=== PATIENT | female | born 1950 | race Caucasian/White ===

== ENCOUNTER 2022-11-06 08:40 | Emergency (ER) | payer MEDICARE, SELFPAY ==
[2022-11-06] VITALS (9 sets, daily range): BP systolic 138–157; BP diastolic 69–85; PULSE 70–97; RESP 18; TEMP 36.6; O2SAT 92–98
--- NOTE | 2022-11-06 09:09 | XR_ITS ---
WS: [id number] Exam: XR chest 1V portable [id number] Date/Time of Exam: 11/06/2022 9:28 AM Reason For Exam: dyspnea/cough No priors. The lungs are clear and fully inflated. Normal cardiomediastinal silhouette. No pleural effusions. Le voscoliosis of the upper T-spine. Remaining bony structures are unremarkable. XR/XR chest 1V portable [id number] IMPRESSION: 1. No acute cardiopulmonary process.
--- NOTE | 2022-11-06 09:09 | ECG_ITS ---
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 Measurements Intervals [place] Rate: 75 P: 31 CO: 140 QRS: 34 QRSD: 90 T: 48 QT: 363 QTc: 407 Interpretive Statements SINUS RHYTHM No previous ECG available for comparison Electronically Signed On 11-06-2022 14:29:09 CDT by Cesar Puente M.D. [id number]
--- NOTE | 2022-11-06 09:09 | W.ED.SOB ---
Documented by User: Contreras Worley DO 11/08/22 08:01 HPI - SOB/Dyspnea General: Chief Complaint: Shortness of Breath/Dyspnea Stated Complaint: sob/congestion/nauseas Time Seen by Provider: 11/06/22 09:04 Source: patient Mode of arrival: ambulatory History of Present Illness: HPI Narrative: 72-year-old female presents [place] to the emergency room with productive cough progressively worsening accompanied by diarrhea and chills. Has a moderate yellow sputum. She did take a home COVID test that was negative. She is also been working outside exposed to a lot of dust and pollen. MD elicited complaint: shortness of breath and cough Onset (ago): day(s) (4) Timing: constant Exacerbating factors: nothing Relieving factors: nothing Associated symptoms: Reports fever(s); Deny abdominal pain, chest congestion, chest pain, cough, diaphoresis, dizziness, extremity pain, hemoptysis, lightheadedness, myalgias, nausea, orthopnea, palpitations, paresthesias, polydipsia, polyuria, rash, sense of impending doom, syncope or vomiting Treatment prior to arrival: none Review of Systems Const: Reports: fever(s), chills, fatigue and malaise; Denies: diaphoresis ENMT: Denies: throat pain, ear or mastoid pain, nasal discharge or nasal congestion Card: Denies: chest pain, palpitations, lightheadedness, syncope or orthopnea Resp: Reports: dyspnea and productive cough; Denies: hemoptysis or chest congestion GI: Reports: diarrhea; Denies: abdominal pain, nausea or vomiting : Denies: flank pain, difficulty voiding, dysuria, urinary frequency or urinary urgency Musc: Denies: neck pain, back pain or extremity pain Skin/Breast: Denies: rash or pruritus Neuro: Denies: dizziness Endo: Denies: polyuria or polydipsia Physical Exam Const: GENERAL APPEARANCE: cooperative and comfortable ORIENTATION/CONSCIOUSNESS: Yes awake, Yes oriented to person, Yes oriented to place and Yes oriented to time HENMT: COMMON NORMALS: normocephalic, atraumatic and hearing grossly normal bilaterally HEAD & SCALP: normocephalic and atraumatic Resp: COMMON NORMALS: normal respiratory effort, No retractions, No use of accessory muscles and clear to auscultation bilaterally AUSCULTATION: clear to auscultation bilaterally Cardio: COMMON NORMALS: regular rate, regular rhythm and No murmurs present (Cardio) RATE: regular rate RHYTHM: regular rhythm GI: COMMON NORMALS: Soft to palpation and No hepatosplenomegaly present AUSCULTATION: Yes normoactive bowel sounds PALPATION: Yes Soft to palpation, No Tenderness to palpation present (GI), No Guarding due to palpation present (GI) and Yes No hepatosplenomegaly present Extremity: COMMON NORMALS: normal to inspection, capillary refill normal, no clubbing, cyanosis or edema, no calf tenderness and no pedal edema Neuro: SENSORIUM/ORIENTATION: Yes oriented to person, Yes oriented to place and Yes oriented to time Skin: COMMON NORMALS: no rashes or lesions noted GENERAL SKIN EXAM: no rashes or lesions noted Course Vital Signs: Vital signs: Vital Signs Temperature 97.8 F 11/06/22 08:50 Pulse Rate 97 11/06/22 13:41 Respiratory Rate 18 11/06/22 08:50 Blood Pressure 157/76 11/06/22 13:41 Pulse Oximetry 96 11/06/22 13:41 Oxygen Delivery Me thod Room Air 11/06/22 13:41 MDM - SOB/Dyspnea Medical Decision Making Care signed out to Dr. Fried at change of shift. See final notes for diagnosis and disposition. 72-year-old female checked out to me by the previous physician at shift change. This young lady had experiencing chest tightness and shortness of breath. Her CBC is normal. Her vitals are good. Her x-ray shows no infiltrate or other process. EKG was not remarkable. Troponin stayed normal at 2 hours. COVID-19 is negative. This may be an irritant versus viral or bacterial bronchitis. She will be covered, given a decreasing dose of steroid, inhaler. She is agreeable to this. First dose is given here. Close outpatient follow-up. Lab Data 11/06/22 09:33 11/06/22 09:33 Labs/Radiology: Radiology Impressions Chest X-Ray 11/06/22 09:09 IMPRESSION: 1. No acute cardiopulmonary process. Laboratory Results WBC 5.6 10^3/uL (4.0-10.0) 11/06/22 09:33 RBC 4.86 10^6/uL (4.1-5.3) 11/06/22 09:33 Hgb 14.1 g/dL (11.5-15.3) 11/06/22 09:33 Hct 43.2 % (37.0-47.0) 11/06/22 09:33 MCV 88.9 fl (81-99) 11/06/22 09:33 MCH 29.0 pg (28.0-34.0) 11/06/22 09:33 MCHC 32.6 g/dL (30.0-36.0) 11/06/22 09:33 RDW 13.6 % (12.1-15.1) 11/06/22 09:33 Plt Count 207 10^3/cmm (130-400) 11/06/22 09:33 MPV 10.2 fL (7.4-10.4) 11/06/22 09:33 Neut % (Auto) 78.0 % 11/06/22 09:33 Lymph % (Auto) 14.6 % 11/06/22 09:33 [place] % (Auto) 6.4 % 11/06/22 09:33 Eos % (Auto) 0.2 % 11/06/22 09:33 Baso % (Auto) 0.4 % 11/06/22 09:33 Neut # (Auto) 4.38 10^3/uL (1.8-7.7) 11/06/22 09:33 Lymph # (Auto) 0.8 10^3/uL (0.8-4.8) 11/06/22 09:33 [place] # (Auto) 0.4 10^3/uL (0.2-0.9) 11/06/22 09:33 Eos # (Auto) 0.0 10^3/uL (0.0-0.8) 11/06/22 09:33 Baso # (Auto) 0.0 10^3/uL (0.0-0.1) 11/06/22 09:33 Nucleated RBC % (auto) 0 % 11/06/22 09:33 Nucleated RBCs # 0.0 /100WBC 11/06/22 09:33 Sodium 133 mmol/L (136-145) L 11/06/22 09:33 Potassium 3.6 mmol/L (3.5-5.1) 11/06/22 09:33 Chloride 97 mmol/L (98-107) L 11/06/22 09:33 Carbon Dioxide 24 mmol/L (22-29) 11/06/22 09:33 Anion Gap 15.6 (5-19) 11/06/22 09:33 BUN 9 mg/dL (8-23) 11/06/22 09:33 Creatinine 0.6 mg/dL (0.5-0.9) 11/06/22 09:33 GFR Calculation Not Reportable 11/06/22 09:33 Glucose 125 mg/dL (65-115) H 11/06/22 09:33 Calculated Osmolality 276 mOsm/kg (285-295) L 11/06/22 09:33 Calcium 8.8 mg/dL (8.5-10.5) 11/06/22 09:33 Total Bilirubin 0.2 mg/dL (0.15-1.2) 11/06/22 09:33 AST 24 U/L (0-32) 11/06/22 09:33 ALT 31 U/L (0-33) 11/06/22 09:33 Alkaline Phosphatase 95 U/L (35-105) 11/06/22 09:33 Troponin T Baseline 6 ng/L (0-10) 11/06/22 09:33 Troponin T 120 Minute 6.00 ng/L (0-10) 11/06/22 11:35 Delta Troponin T 0 ABS# (0-10) 11/06/22 11:35 Total Protein 7.1 g/dL (6.6-8.7) 11/06/22 09:33 Albumin 4.3 g/dL (3.5-5.2) 11/06/22 09:33 Globulin 2.8 g/dL (1.3-4.6) 11/06/22 09:33 Coronavirus 229E (PCR) Not detected (NOT DETECT) 11/06/22 09:33 Human Metapneumovir PCR Detected (NOT DETECT) A 11/06/22 11:29 Entero/Rhino (PCR) Not detected (NOT DETECT) 11/06/22 11:29 SARS-CoV-2 (PCR) Not detected (NOT DETECT) 11/06/22 09:33 Discharge Plan Discharge Patient Disposition: Home Clinical Impression: Acute bronchitis Condition: Stable Prescriptions: New azithromycin 250 mg tablet See Rx Instructions .ROUTE .COMPLEX Qty: 6 0RF Rx Instructions: For 250 mg dose pack: take 500 mg today (day 1), then 250 mg for 4 days (days 2-5) Medrol (Rojas) 4 mg tablets,dose pack See Rx Instructions PO .COMPLEX Qty: 21 0RF Rx Instructions: orally per package directions albuterol sulfate 90 mcg/actuation HFA aerosol inhaler 2 inh inhalation Q4H PRN (Reason: shortness of breath or wheezing) Qty: 6.7 1RF Discharge Orders: Discharge ED (Routine); Ordered 11/06/22 Ordered By: Rick Fried Patient Instructions: Acute Bronchitis (ED) Activity Restrictions/Additional Instructions: Use the inhaler every 4 hours while awake for the next 48 hours, then as needed. Other medications as directed. Return to the emergency department for worsening pain to your chest, worsening shortness of breath despite treatment, fever greater than 100 despite 2-3 doses of antibiotics, other concerning symptoms. Follow-up with your doctor this week. Coding Level of Care Code ED Ecommerce Manager for Chg Fwd Documented by User: Rick Fried DO 11/06/22 22:31 HPI - SOB/Dyspnea General: Chief Complaint: Shortness of Breath/Dyspnea Stated Complaint: sob/congestion/nauseas Time Seen by Provider: 11/06/22 09:04 History of Present Illness: HPI Narrative: 72-year-old female presents to the emergency room with productive cough progressively worsening accompanied by diarrhea and chills. Has a moderate yellow sputum. She did take a home COVID test that was negative. She is also been working outside exposed to a lot of dust and pollen. Course Vital Signs: Vital signs: Vital Signs Temperature 97.8 F 11/06/22 08:50 Pulse Rate 97 11/06/22 13:41 Respiratory Rate 18 11/06/22 08:50 Blood Pressure 157/76 11/06/22 13:41 Pulse Oximetry 96 11/06/22 13:41 Oxygen Delivery Me thod Room Air 11/06/22 13:41 MDM - SOB/Dyspnea Medical Decision Making 72-year-old female checked out to me by the previous physician at shift change. This young lady had experiencing chest tightness and shortness of breath. Her CBC is normal. Her vitals are good. Her x-ray shows no infiltrate or other process. EKG was not remarkable. Troponin stayed normal at 2 hours. COVID-19 is negative. This may be an irritant versus viral or bacterial bronchitis. She will be covered, given a decreasing dose of steroid, inhaler. She is agreeable to this. First dose is given here. Close outpatient follow-up. Lab Data 11/06/22 09:33 11/06/22 09:33 Labs/Radiology: Radiology Impressions Chest X-Ray 11/06/22 09:09 IMPRESSION: 1. No acute cardiopulmonary process. Laboratory Results WBC 5.6 10^3/uL (4.0-10.0) 11/06/22 09:33 RBC 4.86 10^6/uL (4.1-5.3) 11/06/22 09:33 Hgb 14.1 g/dL (11.5-15.3) 11/06/22 09:33 Hct 43.2 % (37.0-47.0) 11/06/22 09:33 MCV 88.9 fl (81-99) 11/06/22 09:33 MCH 29.0 pg (28.0-34.0) 11/06/22 09:33 MCHC 32.6 g/dL (30.0-36.0) 11/06/22 09:33 RDW 13.6 % (12.1-15.1) 11/06/22 09:33 Plt Count 207 10^3/cmm (130-400) 11/06/22 09:33 MPV 10.2 fL (7.4-10.4) 11/06/22 09:33 Neut % (Auto) 78.0 % 11/06/22 09:33 Lymph % (Auto) 14.6 % 11/06/22 09:33 [place] % (Auto) 6.4 % 11/06/22 09:33 Eos % (Auto) 0.2 % 11/06/22 09:33 Baso % (Auto) 0.4 % 11/06/22 09:33 Neut # (Auto) 4.38 10^3/uL (1.8-7.7) 11/06/22 09:33 Lymph # (Auto) 0.8 10^3/uL (0.8-4.8) 11/06/22 09:33 [place] # (Auto) 0.4 10^3/uL (0.2-0.9) 11/06/22 09:33 Eos # (Auto) 0.0 10^3/uL (0.0-0.8) 11/06/22 09:33 Baso # (Auto) 0.0 10^3/uL (0.0-0.1) 11/06/22 09:33 Nucleated RBC % (auto) 0 % 11/06/22 09:33 Nucleated RBCs # 0.0 /100WBC 11/06/22 09:33 Sodium 133 mmol/L (136-145) L 11/06/22 09:33 Potassium 3.6 mmol/L (3.5-5.1) 11/06/22 09:33 Chloride 97 mmol/L (98-107) L 11/06/22 09:33 Carbon Dioxide 24 mmol/L (22-29) 11/06/22 09:33 Anion Gap 15.6 (5-19) 11/06/22 09:33 BUN 9 mg/dL (8-23) 11/06/22 09:33 Creatinine 0.6 mg/dL (0.5-0.9) 11/06/22 09:33 GFR Calculation Not Reportable 11/06/22 09:33 Glucose 125 mg/dL (65-115) H 11/06/22 09:33 Calculated Osmolality 276 mOsm/kg (285-295) L 11/06/22 09:33 Calcium 8.8 mg/dL (8.5-10.5) 11/06/22 09:33 Total Bilirubin 0.2 mg/dL (0.15-1.2) 11/06/22 09:33 AST 24 U/L (0-32) 11/06/22 09:33 ALT 31 U/L (0-33) 11/06/22 09:33 Alkaline Phosphatase 95 U/L (35-105) 11/06/22 09:33 Troponin T Baseline 6 ng/L (0-10) 11/06/22 09:33 Troponin T 120 Minute 6.00 ng/L (0-10) 11/06/22 11:35 Delta Troponin T 0 ABS# (0-10) 11/06/22 11:35 Total Protein 7.1 g/dL (6.6-8.7) 11/06/22 09:33 Albumin 4.3 g/dL (3.5-5.2) 11/06/22 09:33 Globulin 2.8 g/dL (1.3-4.6) 11/06/22 09:33 Coronavirus 229E (PCR) Not detected (NOT DETECT) 11/06/22 09:33 Human Metapneumovir PCR Detected (NOT DETECT) A 11/06/22 11:29 Entero/Rhino (PCR) Not detected (NOT DETECT) 11/06/22 11:29 SARS-CoV-2 (PCR) Not detected (NOT DETECT) 11/06/22 09:33 Discharge Plan Discharge Patient Disposition: Home Clinical Impression: Acute bronchitis Condition: Stable Prescriptions: New azithromycin 250 mg tablet See Rx Instructions .ROUTE .COMPLEX Qty: 6 0RF Rx Instructions: For 250 mg dose pack: take 500 mg today (day 1), then 250 mg for 4 days (days 2-5) Medrol (Rojas) 4 mg tablets,dose pack See Rx Instructions PO .COMPLEX Qty: 21 0RF Rx Instructions: orally per package directions albuterol sulfate 90 mcg/actuation HFA aerosol inhaler 2 inh inhalation Q4H PRN (Reason: shortness of breath or wheezing) Qty: 6.7 1RF Discharge Orders: Discharge ED (Routine); Ordered 11/06/22 Ordered By: Rick Fried Patient Instructions: Acute Bronchitis (ED) Activity Restrictions/Additional Instructions: Use the inhaler every 4 hours while awake for the next 48 hours, then as needed. Other medications as directed. Return to the emergency department for worsening pain to your chest, worsening shortness of breath despite treatment, fever greater than 100 despite 2-3 doses of antibiotics, other concerning symptoms. Follow-up with your doctor this week. Coding Level of Care Code ED Ecommerce Manager for Sahil Aguilar
[2022-11-06 09:44] LABS: Basophils % 0.4 %; Eosinophils % 0.2 %; Hematocrit 43.2 % (37.0-47.0); Hemoglobin 14.1 g/dL (11.5-15.3); Lymphocytes # 0.8 10^3/uL (0.8-4.8); Lymphocytes % 14.6 %; Mean Corpuscular HGB Conc 32.6 g/dL (30.0-36.0); Mean Corpuscular Volume 88.9 fl (81-99); Mean Platelet Volume 10.2 fL (7.4-10.4); Monocytes # 0.4 10^3/uL (0.2-0.9); Monocytes % 6.4 %; Neutrophils # 4.38 10^3/uL (1.8-7.7); Nucleated Red Blood Cells % 0 %; Platelet Count 207 10^3/cmm (130-400); Red Blood Count 4.86 10^6/uL (4.1-5.3); Red Cell Distribution Width 13.6 % (12.1-15.1); White Blood Count 5.6 10^3/uL (4.0-10.0)
[2022-11-06 10:01] LABS: Alanine Aminotransferase 31 U/L (0-33); Albumin Level 4.3 g/dL (3.5-5.2); Alkaline Phosphatase 95 U/L (35-105); Anion Gap 15.6 (5-19); Aspartate Amino Transferase 24 U/L (0-32); Blood Urea Nitrogen 9 mg/dL (8-23); Calcium 8.8 mg/dL (8.5-10.5); Carbon Dioxide 24 mmol/L (22-29); Chloride 97 mmol/L (98-107); Globulin 2.8 g/dL (1.3-4.6); Glucose 125 mg/dL (65-115); Osmolality Calculated 276 mOsm/kg (285-295); Potassium 3.6 mmol/L (3.5-5.1); Sodium 133 mmol/L (136-145); Total Bilirubin 0.2 mg/dL (0.15-1.2); Total Protein 7.1 g/dL (6.6-8.7)
[2022-11-06 10:04] LABS: Troponin(5th) Baseline 6 ng/L (0-10)
--- NOTE | 2022-11-06 11:22 | ECG_ITS ---
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 Measurements Intervals [place] Rate: 71 P: 33 NV: 136 QRS: 36 QRSD: 89 T: 52 QT: 383 QTc: 419 Interpretive Statements SINUS RHYTHM Compared to ECG 11/06/2022 09:30:11 No significant changes Electronically Signed On 11-06-2022 14:33:59 CDT by Cesar Puente M.D. [email or web address] [email or web address] health behavioral medical [id number]
[2022-11-06 11:27] LABS: Adenovirus Not Detected (NOT DETECT); Chlamydia Pneumoniae Not Detected (NOT DETECT); Coronavirus 229E,HKU1,NL63,OC4 Not Detected (NOT DETECT); Human Metapneumovirus Detected (NOT DETECT); Human Rhinovirus/Enterovirus Not Detected (NOT DETECT); Influenza A Not Detected (NOT DETECT); Influenza A H1 Not Detected (NOT DETECT); Influenza A H1-2009 Not Detected (NOT DETECT); Influenza A H3 Not Detected (NOT DETECT); Influenza B Not Detected (NOT DETECT); Mycoplasma Pneumoniae Not Detected (NOT DETECT); Parainfluenza Virus Type 1 Not Detected (NOT DETECT); Parainfluenza Virus Type 2 Not Detected (NOT DETECT); Parainfluenza Virus Type 3 Not Detected (NOT DETECT); Parainfluenza Virus Type 4 Not Detected (NOT DETECT); Respiratory Syncytial Virus A Not Detected (NOT DETECT); Respiratory Syncytial Virus B Not Detected (NOT DETECT); SARS-COV-2 Not Detected (NOT DETECT)
[2022-11-06 11:30] LABS: Human Metapneumovirus Detected (NOT DETECT); Human Rhinovirus/Enterovirus Not Detected (NOT DETECT)
[2022-11-06 12:25] LABS: Troponin 5 2HR Delta 0 ABS# (0-10)
[2022-11-06] MEDS: predniSONE 20 mg Tablet 40 MG PO (13:40)
[2022-11-06] MEDS: azithromycin 250 mg Tablet 500 MG PO (13:40)
--- NOTE | 2022-11-10 11:57 | DCPLANNER ---
manager finance called patient due to no primary care physician - patient stated that she has a primary care physician - patient does not live in the area
== END 2022-11-06 13:45 | disposition home or self-care (01) ==
PROVIDERS: Family Medicine; Emergency Provider Emergency Medicine
DX: J20.9 Acute bronchitis, unspecified (principal); Z20.822 Contact with and (suspected) exposure to COVID-19
CPT/HCPCS: 36415; 71045; 80053; 84484; 85025; 87635; 87801; 93005; 99285; J7512; Q0144